=== PATIENT | male | born 1975 ===

== ENCOUNTER 2016-09-02 00:44 | Emergency (ER) | payer SELFPAY ==
[~2016-09-02] VITALS: Ht 160 cm; Wt 73.5 kg
[2016-09-02 00:51] VITALS: Ht 160 cm; Wt 73.5 kg
--- NOTE | 2016-09-02 01:54 | RADRPT ---
PROCEDURE: X-ray thoracic spine CLINICAL INDICATION: Upper back pain. TECHNIQUE: 3 views of the thoracic spine COMPARISON: None FINDINGS: No acute fracture or dislocation. Mild right marginal osteophytes at the T7-8 level suggesting mild degenerative changes. Soft tissues unremarkable. IMPRESSION: No acute fracture. RPTAT: [facility] Physician Flor Date Time Electronically viewed and signed by Lance Watson Physician on 09/02/2016 01:54 RS/
[2016-09-02] MEDS ORDERED: IBUP-1542 PO (02:17)
[2016-09-02] MEDS ORDERED: HYDR-906 PO (02:17)
[2016-09-02] MEDS ORDERED: CYCL-319 PO (02:17)
--- NOTE | 2016-09-02 02:17 | ERD ---
ER Documentation Chief Complaint Date/Time DATE: 09/02/16 TIME: 02:14 Chief Complaint upper back pain x 3 days HPI 40-year-old male presents here in emergency department for complaints of upper back pain for 3 days. Patient was in a car rash. Patient described pain as throbbing pain, 6/10 scale, is worse upon movement. Patient denies any direct trauma and affected area. Patient denies any shortness of breath or wheezing. Patient denies any chest pain. Patient denies any dizziness. Patient did not take any medications for pain. ROS All systems reviewed and are negative except as per history of present illness. Medications Home Meds Reported Medications [none] Unknown Strength No Conflict Check 09/02/16 Allergies Allergies: Coded Allergies: No Known Allergy (Unverified , 11/22/15) PMhx/Soc History of Surgery: No Anesthesia Reaction: No Hx Neurological Disorder: No Hx Respiratory Disorders: No Hx Cardiac Disorders: No Hx Psychiatric Problems: Yes (depression,anxiety,meth use) Hx Miscellaneous Medical Probl: Yes (borderline diabetes) Hx Alcohol Use: No Hx Substance Use: Yes (meth last used at 1600 11/22/2015) Hx Tobacco Use: Yes Smoking Status: Current every day smoker FmHx Family History: No coronary disease, No diabetes, No other Physical Exam Vitals Vital Signs Date Time Temp Pulse Resp B/P Pulse Ox O2 Delivery O2 Flow Rate FiO2 09/02/16 00:51 99.7 98 18 149/88 97 Physical Exam GENERAL: The patient is well developed and appropriate for usual state of health, in no apparent distress. CHEST: Clear to auscultation bilaterally. There are no rales, wheezes or rhonchi. HEART: Regular rate and rhythm. No murmurs, clicks, rubs or gallops. No S3 or S4. ABDOMEN: Soft, nontender and nondistended. Good bowel sounds. No rebound or guarding. No gross peritonitis. No gross organomegaly or masses. No Coy sign or McBurney point tenderness. BACK: No midline or flank tenderness. Mild tenderness on palpation on the paraspinal aspect of the thoracic spine. Able to do for range of motion without any restriction. EXTREMITIES: Equal pulses bilaterally. There is no peripheral clubbing, cyanosis or edema. No focal swelling or erythema. Full range of motion. Grossly neurovascularly intact. NEURO: Alert and oriented. Cranial nerves 2-12 intact. Motor strength in all 4 extremities with 5/5 strength. Sensation grossly intact. Normal speech and gait. SKIN: There is no apparent rash or petechia. The skin is warm and dry. HEMATOLOGIC AND LYMPHATIC: There is no evidence of excessive bruising or lymphedema. No gross cervical, axillary, or inguinal lymphadenopathy. Results 24 hrs PROCEDURE: X-ray thoracic spine CLINICAL INDICATION: Upper back pain. TECHNIQUE: 3 views of the thoracic spine COMPARISON: None FINDINGS: No acute fracture or dislocation. Mild right marginal osteophytes at the T7-8 level suggesting mild degenerative changes. Soft tissues unremarkable. IMPRESSION: No acute fracture. RPTAT: [facility] Physician Flor Date Time Electronically viewed and signed by Physician Flor on 09/02/2016 01:54 RS/ CC: HUSAM LANDAVERDE [employer] Procedures/MDM Medical Decision Making: Patient's pain is most likely consistent with a degenerative disc disease. There is no suspicion for neurovascular compromise. Patient has intact sensation and circulation of the affected extremity and distal extremities. No incontinence, no suspicion for cauda equina syndrome, no saddle anesthesia, no symptoms of any acute bacterial infection, no symptoms of any perirectal abscesses, pilonidal cyst.There is low suspicion for septic arthritis. Patient does not have any fever. No symptoms of any aortic dissection or aortic aneurysm. Radiology exam does not show any fractures at this time, does show degenerative changes consistent with pain Disposition: Home. Patient is given prescription for ibuprofen for mild to moderate pain, Beverly for severe pain, Flexeril for muscle spasm. Patient was advised to avoid heavy lifting , apply warm compresses on affected area. Patient was advised that if symptoms are worse, numbness, tingling, high fever, unable to move joint, worsening symptoms, to return to emergency department immediately. Otherwise, patient is advised to follow up with the primary care doctor in 5-7 days for reevaluation of symptoms. Departure Diagnosis: Primary Impression: Back pain Back pain location: thoracic back pain Chronicity: acute Back pain laterality: bilateral Qualified Code: M54.6 - Acute bilateral thoracic back pain Condition: Stable Patient Instructions: Back Pain (Acute Or Chronic) Additional Instructions: Patient is given prescription for ibuprofen for mild to moderate pain, Beverly for severe pain, Flexeril for muscle spasm. Patient was advised to avoid heavy lifting , apply warm compresses on affected area. Patient was advised that if symptoms are worse, numbness, tingling, high fever, unable to move joint, worsening symptoms, to return to emergency department immediately. Otherwise, patient is advised to follow up with the primary care doctor in 5-7 days for reevaluation of symptoms. HUSAM LANDAVERDE NP Sep 02, 2016 02:17
== END 2016-09-02 02:25 | disposition home or self-care (01) ==
LOC: FTE 00:44
DX: M54.6 Pain in thoracic spine (principal); F17.210 Nicotine dependence, cigarettes, uncomplicated
CPT/HCPCS: 72072